=== PATIENT | female | born 1995 | race Caucasian/White ===

== ENCOUNTER → 2020-11-20 | Outpatient (CLI) | payer OTHER ==
[~2020-11-20] MED LIST: CYAN-9 PO; ETON68IM3 SQ; FAMO20TA5 PO; HYOS0.1222 PO; MAGN500C10 PO; MIDO2.5T PO; NORG1TAB6 PO; POLY17PO29 PO
== END ==
LOC: LAB 10:59
PROVIDERS: ATTEND Internal Medicine Gastroenterology
DX: Z01.812 Encounter for preprocedural laboratory examination (principal); K62.5 Hemorrhage of anus and rectum; Z20.828 Contact with and (suspected) exposure to other viral communicable diseases
CPT/HCPCS: U0003

== ENCOUNTER → 2020-11-22 | Day surgery (SDC) | payer OTHER ==
[~2020-11-22] MED LIST changes: +GLYCOPYRROLATE 1 MG/5 ML SYRINGE. ONE; +ONDANSETRON PF 4 MG/2 ML VIAL. IVP ONE; +ONDANSETRON PF 4 MG/2 ML VIAL. ONE; +PROPOFOL 10 MG/ML (20ML) VIAL. IV ONE
[2020-11-22 10:24] VITALS: BP 126/68
--- NOTE | 2020-11-26 14:11 | PATHOLOGY ---
[facility] Accession Number: [id number] . 01 Material submitted: . PART A: small bowel - SMALL BOWEL PART B: pyloric antrum - ANTRUM BODY PART C: esophagus - DISTAL ESOPHAGUS BX. Modifiers: distal PART D: esophagus - MID ESOPHAGUS. Modifiers: mid PART E: ileum - TERMINAL ILEUM PART F: colon - RIGHT COLON BX. Modifiers: right PART G: colon - LEFT COLON BX. Modifiers: left . 01 Clinical history: . REFLUX, DYSPHAGIA RECTAL BLEED . 02 Diagnosis: A. Small bowel biopsies: - No significant pathologic abnormalities. . B. Gastric biopsies, gastric antrum and gastric body: - Chronic gastritis, mild. . C. Esophageal biopsies, distal esophagus: - Segments of gastric mucosa showing mild chronic inflammation. . D. Esophageal biopsies, middle esophagus: - Segments of squamous esophageal mucosa showing focal mild chronic inflammation. . E. Small intestine mucosa, terminal ileum biopsies: - Hyperplastic mucosal-associated lymphoid tissue (Peyer's patch). . F. Colonic mucosa, right colon biopsies: - No significant pathologic abnormalities. . G. Colonic mucosa, left colon biopsies: - No significant pathologic abnormalities. . (MELVINM:mary; 11/26/2020) [facility] 11/26/2020 1204 Local . 02 Comment: Sections of the small bowel biopsy reveal segments of duodenal and small intestine mucosa. Where best oriented, the mucosal villi show no sprue-like changes or significant inflammatory changes. . Sections of the gastric biopsy reveal segments of gastric body and gastric antral mucosa. The gastric body mucosa shows mild superficial chronic inflammation. The gastric antral mucosa also shows mild chronic inflammation. A properly controlled immunoperoxidase stain for Helicobacter is negative for Helicobacter organisms. . Sections of the distal esophageal biopsy reveal segments of gastric mucosa showing mild chronic inflammation. There is no squamous esophageal mucosa. There is no evidence of Hinojosa's change, dysplasia or malignancy. . Sections of the middle esophageal biopsy reveal segments of tangentially oriented squamous esophagus mucosa showing focal mild chronic inflammation. There is no evidence of Hinojosa's change, dysplasia or malignancy. . Sections of the terminal ileum biopsy reveal segments of small intestine mucosa containing hyperplastic mucosal-associated lymphoid tissue (Peyer's patch). There are no sprue-like changes or significant inflammatory changes. . Sections of the right colon and left colon biopsies appear similar and reveal multiple segments of colonic mucosa. There is no evidence of a chronic destructive colitis, lymphocytic colitis, or collagenous colitis. . (JPM:mary; 11/26/2020) . Special stain performed: Immunoperoxidase stain for Helicobacter on B1. . 02 Electronically signed: . Brown Davis MD, Pathologist NPI- [id number] . 01 Gross description: . A. Received in formalin labeled "Armstrong, Kerry, small bowel BX" are multiple severino-brown soft tissue fragments measuring in aggregate 0.7 x 0.5 x 0.1 cm. The specimen is submitted entirely in A1. . B. Received in formalin labeled "Armstrong, Kerry, antrum body BX" are multiple severino-brown soft tissue fragments measuring in aggregate 0.7 x 0.5 x 0.1 cm. The specimen is submitted entirely in B1. . C. Received in formalin labeled "Armstrong, Kerry, distal esophagus BX" is a fragment of severino-brown soft tissue measuring 0.4 x 0.3 x 0.1 cm. The specimen is submitted entirely in C1. . D. Received in formalin labeled "Armstrong, Kerry, mid esophagus BX" are two sevreino-brown soft tissue fragments measuring in aggregate 0.5 x 0.4 x 0.1 cm. The specimen is submitted entirely in D1. . E. Received in formalin labeled "Armstrong, Kerry, terminal ileum BX" are multiple severino-brown soft tissue fragments measuring in aggregate 0.6 x 0.3 x 0.1 cm. The specimen is submitted entirely in E1. . F. Received in formalin labeled "Armstrong, Kerry, right colon BX" are multiple severino-brown soft tissue fragments measuring in aggregate 1.2 x 0.5 x 0.1 cm. The specimen is submitted entirely in F1. . G. Received in formalin labeled "Armstrong, Kerry, left colon BX" are multiple severino-brown soft tissue fragments measuring in aggregate 0.9 x 0.4 x 0.1 cm. The specimen is submitted entirely in . ([facility] [place]; 11/24/2020) [facility] 11/25/2020 0826 Local . 02 Pathologist provided ICD-10: K29.50, K20.90, K21.9, R13.10 . 02 CPT . 518125, 790642, 013423, 834908, [id number], [id number], [id number], [id number] Specimen Comment: A courtesy copy of this report has been sent to [phone], [phone] Specimen Comment: [id number] Specimen Comment: Report sent to / DR ERIC Specimen Comment: A duplicate report has been generated due to demographic updates. Performed at: 01 [facility] [address] [facility] [address], [place] [id number] MD Bridger Tapia MD Phone: [phone] Performed at: 02 [facility] [address], [place] [id number] MD Brown Davis MD Phone: [phone]
== END | disposition home or self-care (01) ==
LOC: ENDOS 08:01 → EDUNIT# 10:30
PROVIDERS: ATTEND Internal Medicine Gastroenterology
DX: K62.5 Hemorrhage of anus and rectum (principal); R13.10 Dysphagia, unspecified; K64.0 First degree hemorrhoids; K21.00 Gastro-esophageal reflux disease with esophagitis, without bleeding; K29.50 Unspecified chronic gastritis without bleeding; K63.89 Other specified diseases of intestine; K31.89 Other diseases of stomach and duodenum; M19.90 Unspecified osteoarthritis, unspecified site; F41.9 Anxiety disorder, unspecified; F32.9 Major depressive disorder, single episode, unspecified; Z79.899 Other long term (current) drug therapy; Z98.890 Other specified postprocedural states; Z88.8 Allergy status to other drugs, medicaments and biological substances
CPT/HCPCS: 43239; 43450; 45380; 81025; J2405; J2704; J3490